=== PATIENT | male | born 1980 ===

== ENCOUNTER 2025-06-07 06:02 | Day surgery (SDC) | payer OTHER ==
[2025-06-07] MEDS ORDERED: DIPHENHYDRAMINE HCL 50 MG/ML VIAL 1ML IV ONE (08:30)
[2025-06-07] MEDS ORDERED: fentaNYL CITRATE 50 MCG/ML AMPUL IV PUSH ONE (08:30)
[2025-06-07] MEDS ORDERED: MIDAZOLAM HCL/PF 5 MG/ML VIAL IV ONE (08:30)
[2025-06-07] MEDS ORDERED: PROTONIX20 MG PO (08:30)
== END 2025-06-07 09:30 | disposition home or self-care (01) ==
LOC: AMB-ENDOS 06:02
PROVIDERS: ATTEND Surgery
DX: K29.50 Unspecified chronic gastritis without bleeding (principal); E66.09 Other obesity due to excess calories; K44.9 Diaphragmatic hernia without obstruction or gangrene